=== PATIENT | female | born 1950 | race African-American/Black ===

== ENCOUNTER 2017-10-16 10:48 | Outpatient (CLI) | payer OTHER | END 2017-10-16 10:49 | disposition home or self-care (01) | LOC: DTY/OP 10:48 | PROVIDERS: ATTEND Surgery | DX: E11.9 Type 2 diabetes mellitus without complications (principal); I10 Essential (primary) hypertension | CPT/HCPCS: 97802 ==

== ENCOUNTER 2017-11-22 13:19 | Outpatient (CLI) | payer MEDICARE | END 2017-11-22 13:20 | disposition home or self-care (01) | LOC: BICMAMMO 13:19 | PROVIDERS: ATTEND Family Medicine | DX: Z12.31 Encounter for screening mammogram for malignant neoplasm of breast (principal); Z80.3 Family history of malignant neoplasm of breast | CPT/HCPCS: 77063; 77067 ==

== ENCOUNTER 2018-03-03 16:00 | Inpatient (IN) | payer MEDICARE ==
[2018-03-06] MEDS ORDERED: CEFAZOLIN 2 GM/50 ML BAG ONE (06:29)
[2018-03-06] MEDS ORDERED: Heparin 5,000 UNITS/ML VIAL ONE (06:29)
[2018-03-06] MEDS ORDERED: Bupivacaine/Epinephrine 0.25% 30 ML VIAL ONE (06:35)
[2018-03-06] MEDS ORDERED: Levofloxacin 500 mg/D5W 100 ml Premix Bag ONE (07:15)
[2018-03-06] MEDS ORDERED: Fentanyl 100 MCG/2 ML VIAL ONE ×2 (07:24→09:42)
[2018-03-06] MEDS ORDERED: Phenylephrine HCL 10 MG/ML VIAL ONE (08:16)
[2018-03-06] MEDS ORDERED: Zolpidem Tartrate 5 MG TAB PO PRN (09:05)
[2018-03-06] MEDS ORDERED: diphenhydrAMINE 50 MG/ML VIAL IM PRN (09:05)
[2018-03-06] MEDS ORDERED: diphenhydrAMINE 25 MG CAP PO PRN (09:05)
[2018-03-06] MEDS ORDERED: Promethazine HCl 25 MG/ML VIAL IM PRN ×2 (09:05→12:40)
[2018-03-06] MEDS ORDERED: diphenhydrAMINE 50 MG/ML VIAL IVP PRN ×2 (09:05→12:40)
[2018-03-06] MEDS ORDERED: Ondansetron PF 4 MG/2 ML Vial IVP PRN ×2 (09:05→12:40)
[2018-03-06] MEDS ORDERED: fentaNYL Citrate/PF 2,000 MCG in Sodium Chloride 0.9% 60 ML IV PRN (09:05)
[2018-03-06] MEDS ORDERED: Naloxone HCl 0.4 mg/ml Vial IV PRN (09:05)
[2018-03-06] MEDS ORDERED: Communication Order-Pharmacy FS SCH (09:15)
[2018-03-06] MEDS ORDERED: Promethazine HCl 25 MG/ML VIAL ONE (09:56)
[2018-03-06] MEDS ORDERED: PROPOFOL 200 MG/20 ML VIAL ONE (11:37)
[2018-03-06] MEDS ORDERED: PHENYLEPHRINE-NS 100 MCG/ML 10 ML SYRINGE ONE (11:37)
[2018-03-06] MEDS ORDERED: Ondansetron PF 4 MG/2 ML Vial ONE (11:37)
[2018-03-06] MEDS ORDERED: Dexamethasone 20 MG/5 ML VIAL ONE (11:37)
[2018-03-06] MEDS ORDERED: ePHEDrine/0.9% NaCl/PF SYRINGE 50 mg/10 ml ONE (11:37)
[2018-03-06] MEDS ORDERED: Glycopyrrolate 0.2 MG/ML 5 ML SYRINGE ONE (11:37)
[2018-03-06] MEDS ORDERED: Ketorolac Tromethamine 30 MG/ML VIAL ONE (11:37)
[2018-03-06] MEDS ORDERED: Lidocaine 1% PF 5 ML VIAL ONE (11:37)
[2018-03-06] MEDS ORDERED: Hydrocodone-Acetamin 15 ML UDCUP PO PRN (12:40)
[2018-03-06] MEDS ORDERED: hydrALAZINE 20 MG/ML VIAL SLOW IVP PRN (12:40)
[2018-03-06] MEDS ORDERED: HumaLOG 300 UNITS/3 ML VIAL SC PRN (12:40)
[2018-03-06] MEDS ORDERED: Dextrose 50% Abboject 50 ML SYRINGE SLOW IVP PRN (12:40)
[2018-03-06] MEDS ORDERED: Dextrose 5% in Water 1,000 ML IV PRN (12:40)
[2018-03-06] MEDS ORDERED: Carvedilol 25 MG TAB PO SCH (12:45)
[2018-03-06 12:46] VITALS: BMI 39.4
[2018-03-06] MEDS: Acetaminophen 1,000 MG in Premix Bag 1 BAG IVPB SCH ×2 (13:43→18:22)
[2018-03-06] MEDS: Sodium Chloride 0.9% 1,000 ML IV SCH (13:44)
--- NOTE | 2018-03-06 13:56 | OP ---
DATE OF PROCEDURE: 03/06/2018 PREOPERATIVE DIAGNOSES: 1. Morbid obesity with a body mass index of 40. 2. Type 2 diabetes. POSTOPERATIVE DIAGNOSES: 1. Morbid obesity with a body mass index of 40. 2. Type 2 diabetes. PROCEDURE PERFORMED: 1. Laparoscopic sleeve gastrectomy with [place] staple-line reinforcement and 38-[place] bougie. 2. Esophagogastroduodenoscopy. ANESTHESIA: General. BLOOD LOSS: Minimal. COMPLICATION: None. SPECIMENS: Stomach. DESCRIPTION OF PROCEDURE: The patient was taken to the operating room, laid in supine position. After general anesthetic was obtained, the arms and legs were double strapped to the bariatric table. OG tube was used to decompress the stomach. The abdomen was prepped and draped in sterile fashion. Left subcostal 5 mm Optiview trocar was placed in the usual fashion and high-flow pneumoperitoneum was obtained. Left and right abdominal 12 mm ports as well as a right subcostal 5 mm port were placed under direct visualization. A 5 mm incision was made to the xiphoid. Davonte retractors were used to raise the liver off the GE junction. Short gastrics were taken down, mid body of the stomach to left janiya of the diaphragm. Left janiya, posterior fundus, angle of His were completely dissected. There was no hiatal hernia. Short gastrics were taken down to a distance of 5 cm proximal to the pylorus. OG tube was removed and the 38 bougie was brought in with its tip in the antrum of the stomach. Multiple loads from [place] stapling device with [place] staple line reinforcements were used to perform the sleeve. At first, it was fired at about a distance 6 cm proximal to the pylorus, angled up towards the incisura. Multiple loads were fired up along the bougie and the stomach was completely transected at the angle of His. The stomach was removed from the left abdominal incision and the fascial defect was closed using GraNee needle and 0 Vicryl tie. No bleeding on the staple line. No injury to any intra-abdominal structures. The Bougie was removed and the EGD scope was passed into esophagus, stomach, to the level of duodenum without obstruction. There was no stricture at the incisura. No air leakage or bleeding. EGD scope was used to decompress the stomach, it was pulled and removed. All ports were removed under direct visualization without bleeding. Pneumoperitoneum was let down. Vicryl was used to close the fascial defect from the left abdominal incision. All other incisions were closed using 4-0 Monocryl and Dermabond after being irrigated. The patient was transferred to Recovery in stable condition. All instrument counts, needle counts, and lap counts were correct. Job ID: [id number]
[2018-03-06] MEDS: Gabapentin 300 MG CAP PO SCH ×2 (15:35→20:57)
[2018-03-06] MEDS: Carvedilol 25 MG TAB PO SCH (20:57)
[2018-03-06] MEDS ORDERED: Enoxaparin Sodium 40 MG/0.4 ML SYRINGE SC SCH (21:00)
[2018-03-07] MEDS: Acetaminophen 1,000 MG in Premix Bag 1 BAG IVPB SCH ×2 (00:08→05:49)
[2018-03-07] MEDS: Sodium Chloride 0.9% 1,000 ML IV SCH (00:09)
[2018-03-07 06:18] LABS: Anion Gap 13 mmol/L (10-20); BUN (Urea Nitrogen) 15 mg/dL (9.8-20.1); Calc. Creatinine Clearance 119 mL/min (70-130); Calcium 9.2 mg/dL (7.8-10.44); Carbon Dioxide 22 mmol/L (23-31); Chloride 106 mmol/L (98-107); Estimated GFR-MDRD Greater than 90; Glucose 94 mg/dL (80-115); Sodium 137 mmol/L (136-145)
[2018-03-07 06:40] LABS: #Lymphocytes 1.9 thou/uL (1.20-3.40); #Monocytes 0.4 thou/uL (0.11-0.59); #Neutrophils 4.7 thou/uL (1.40-6.50); %Basophils 0.4 % (0.0-1.0); %Eosinophils 0.2 % (0.0-10.0); %Lymphocytes 26.6 % (21.0-51.0); %Monocytes 6.2 % (0.0-10.0); %Neutrophils 66.7 % (42.0-75.0); Mean Corpuscular HGB CONC 34.3 g/dL (32.0-36.0); Mean Corpuscular Hemoglobin 30.4 pg (27.0-31.0); Mean Corpuscular Volume 88.5 fL (78.0-98.0); Mean Platelet Volume 8.4 fL (7.4-10.4); Platelet Count 206 thou/uL (130-400); RBC Distribution Width 12.6 % (11.5-14.5); Red Blood Cell (RBC) Count 3.61 mill/uL (4.20-5.40)
[2018-03-07] MEDS ORDERED: Pantoprazole 40 MG VIAL IVP SCH (09:00)
[2018-03-07] MEDS: Carvedilol 25 MG TAB PO SCH (09:49)
[2018-03-07] MEDS: Gabapentin 300 MG CAP PO SCH (09:49)
[2018-03-07 11:54] VITALS: BP 104/63; TEMP 98.4
[2018-03-07] MEDS ORDERED: Losartan 25 MG TAB PO SCH (21:00)
== END 2018-03-07 14:15 | disposition home or self-care (01) | DRG 621 ==
LOC: SURG A 03-06 05:54
PROVIDERS: ADMIT Surgery; ATTEND Surgery
PROC: 0DB64Z3 Excision of Stomach, Percutaneous Endoscopic Approach, Vertical (ICD-10-PCS; principal; 2018-03-06)
PROC: 0DJ08ZZ Inspection of Upper Intestinal Tract, Via Natural or Artificial Opening Endoscopic (ICD-10-PCS; 2018-03-06)
DX: E66.01 Morbid (severe) obesity due to excess calories (principal); Z68.39 Body mass index [BMI] 39.0-39.9, adult; E11.9 Type 2 diabetes mellitus without complications
CPT/HCPCS: 36415; 36416; 80048; 85025; 88307; 88312; 94760; C9113; J0131; J1100; J1644; J1650; J1885; J1956; J2001; J2370; J2405; J2550; J2704; J3010; J7050

== ENCOUNTER 2018-03-04 08:33 | Outpatient (CLI) | payer MEDICARE ==
[2018-03-04 09:55] LABS: #Basophils 0.1 thou/uL (0.0-0.2); #Eosinphils 0.1 thou/uL (0.0-0.7); #Lymphocytes 1.8 thou/uL (1.20-3.40); #Monocytes 0.3 thou/uL (0.11-0.59); %Basophils 1.5 % (0.0-1.0); %Eosinophils 2.7 % (0.0-10.0); %Lymphocytes 42.2 % (21.0-51.0); %Monocytes 7.1 % (0.0-10.0); %Neutrophils 46.5 % (42.0-75.0); Hemoglobin 12.5 g/dL (12.0-16.0); Mean Corpuscular Hemoglobin 30.5 pg (27.0-31.0); Mean Corpuscular Volume 87.3 fL (78.0-98.0); Mean Platelet Volume 8.6 fL (7.4-10.4); Platelet Count 248 thou/uL (130-400); RBC Distribution Width 12.6 % (11.5-14.5); Red Blood Cell (RBC) Count 4.08 mill/uL (4.20-5.40); White Blood Cell (WBC) Count 4.2 thou/uL (4.8-10.8)
[2018-03-04 10:07] LABS: ALT (SGPT) 18 U/L (8-55); AST (SGOT) 17 U/L (5-34); Albumin 4.1 g/dL (3.4-4.8); Alkaline Phosphatase 46 U/L (40-150); Anion Gap 13 mmol/L (10-20); BUN (Urea Nitrogen) 20 mg/dL (9.8-20.1); Bilirubin, Direct 0.2 mg/dL (0.1-0.3); Bilirubin, Total 0.5 mg/dL (0.2-1.2); Calc. Creatinine Clearance 0 mL/min (70-130); Carbon Dioxide 26 mmol/L (23-31); Chloride 104 mmol/L (98-107); Estimated GFR-MDRD Greater than 90; Globulin 3.1 g/dL (2.4-3.5); Glucose 123 mg/dL (80-115); Protein, Total 7.2 g/dL (6.0-8.3); Sodium 139 mmol/L (136-145)
[2018-03-04 10:08] LABS: Hemoglobin A1c 6.5 % (4.0-6.0)
--- NOTE | 2018-03-04 13:09 | RAD ---
CHEST TWO VIEWS: INDICATIONS: Preoperative evaluation. COMPARISON: 12/24/2006 FINDINGS: No lobar consolidation, effusion, or pneumothorax. The cardiac silhouette is stable. There are meta llic clips overlying the upper abdomen. IMPRESSION: No focal consolidation. POS: TERESE
--- NOTE | 2018-03-04 13:16 | EKG ---
Test Reason : Blood Pressure : / mmHG Vent. Rate : 065 BPM Atrial Rate : 065 BPM P-R Int : 136 ms QRS Dur : 084 ms QT Int : 382 ms P-R-T Axes : 042 035 029 degrees QTc Int : 397 ms Normal sinus rhythm Normal ECG When compared with ECG of 29-JUL-2007 10:28, No significant change was found Confirmed by RONALDO RICHTER, DR. Steve ([id number]) on 03/04/2018 1:16:01 PM Referred By: SHANNON Confirmed By:DR. Evi HIGGINS MD
== END 2018-03-04 08:34 | disposition home or self-care (01) ==
LOC: LABBT 08:33
PROVIDERS: ATTEND Surgery
DX: Z01.818 Encounter for other preprocedural examination (principal); E66.01 Morbid (severe) obesity due to excess calories
CPT/HCPCS: 71046; 80053; 80076; 83036; 85025; 93005; 93010

== ENCOUNTER 2018-12-24 15:29 | Outpatient (CLI) | payer MEDICARE ==
--- NOTE | 2018-12-24 16:44 | MMO ---
Bilateral MAMMO Bilat Screen [facility]. CLINICAL HISTORY: Patient is 68 years old and is seen for screening. The patient has the following family history of breast cancer: sister. The patient has no personal history of cancer. VIEWS: The views performed were: bilateral craniocaudal with tomosynthesis and bilateral mediolateral oblique with tomosynthesis. FILMS COMPARED: The present examination has been compared to prior imaging studies performed at [facility] on 11/15/2014, 11/17/2015, 11/19/2016 and 11/22/2017. This study has been interpreted with the assistance of computer-aided detection. MAMMOGRAM FINDINGS: There are scattered fibroglandular densities. Benign calcifications are noted bilaterally. Nodularity is stable. There are no suspicious masses, suspicious calcifications, or new areas of architectural distortion. IMPRESSION: THERE IS NO MAMMOGRAPHIC EVIDENCE OF MALIGNANCY. A ROUTINE FOLLOW-UP MAMMOGRAM IN 1 YEAR IS RECOMMENDED. THE RESULTS OF THIS EXAM WERE SENT TO THE PATIENT. ACR BI-RADS Category 2 - Benign finding MAMMOGRAPHY NOTE: 1. A negative mammogram report should not delay a biopsy if a dominant of clinically suspicious mass is present. 2. Approximately 10% to 15% of breast cancers are not detected by mammography. 3. Adenosis and dense breasts may obscure an underlying neoplasm. Reported by: KELLI MANN MD Electonically Signed: [id number]
== END 2018-12-24 15:30 | disposition home or self-care (01) ==
LOC: BICMAMMO 15:29
PROVIDERS: ATTEND Family Medicine
DX: Z12.31 Encounter for screening mammogram for malignant neoplasm of breast (principal); Z80.3 Family history of malignant neoplasm of breast
CPT/HCPCS: 77063; 77067

== ENCOUNTER 2020-01-07 08:38 | Outpatient (CLI) | payer MEDICARE ==
--- NOTE | 2020-01-07 09:05 | MMO ---
Bilateral MAMMO Bilat Screen [facility]. CLINICAL HISTORY: Patient is 69 years old and is seen for screening. The patient has the following family history of breast cancer: sister. The patient has no personal history of cancer. VIEWS: The views performed were: bilateral craniocaudal with tomosynthesis; bilateral mediolateral oblique with tomosynthesis; and right mediolateral oblique. FILMS COMPARED: The present examination has been compared to prior imaging studies performed at [facility] on 11/17/2015, 11/19/2016, 11/22/2017 and 12/24/2018. This study has been interpreted with the assistance of computer-aided detection. MAMMOGRAM FINDINGS: There are scattered fibroglandular densities. There are stable benign appearing calcifications seen in both breasts. There are also vascular calcifications. There are no suspicious masses, suspicious calcifications, or new areas of architectural distortion. IMPRESSION: THERE IS NO MAMMOGRAPHIC EVIDENCE OF MALIGNANCY. A ROUTINE FOLLOW-UP MAMMOGRAM IN 1 YEAR IS RECOMMENDED. THE RESULTS OF THIS EXAM WERE SENT TO THE PATIENT. ACR BI-RADS Category 2 - Benign finding MAMMOGRAPHY NOTE: 1. A negative mammogram report should not delay a biopsy if a dominant of clinically suspicious mass is present. 2. Approximately 10% to 15% of breast cancers are not detected by mammography. 3. Adenosis and dense breasts may obscure an underlying neoplasm. Reported by: DEREK JUSTICE MD Electonically Signed: [id number]
== END 2020-01-07 08:39 | disposition home or self-care (01) ==
LOC: BICMAMMO 08:38
PROVIDERS: ATTEND Family Medicine
DX: Z12.31 Encounter for screening mammogram for malignant neoplasm of breast (principal); Z80.3 Family history of malignant neoplasm of breast
CPT/HCPCS: 77063; 77067

== ENCOUNTER 2020-01-21 08:34 | Outpatient (CLI) | payer MEDICARE ==
--- NOTE | 2020-01-21 09:13 | RAD ---
Radiograph right great toe 3 views: HISTORY: 69-year-old female with diabetic foot pain involving first toe FINDINGS: Mild DJD first MTP without hallux valgus. Bony hypertrophy at medial edge of first IP. First IP joint space maintained. No erosions. No soft ti ssue calcifications. No destructive osseous lesion or fracture. 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
== END 2020-01-21 08:35 | disposition home or self-care (01) ==
LOC: BICRAD 08:34
PROVIDERS: ATTEND Podiatrist
DX: M79.674 Pain in right toe(s) (principal); M19.071 Primary osteoarthritis, right ankle and foot

== ENCOUNTER 2020-02-25 06:53 | Outpatient (CLI) | payer MEDICARE ==
[2020-02-26 04:01] LABS: SARS-CoV-2 MS2 Positive; SARS-CoV-2 N Gene Negative; SARS-CoV-2 S Gene Negative; SARS-CoV-2 by NAA Not Detected (NotDetected); SARS-CoV-2 orf1ab Negative
== END 2020-02-25 06:54 | disposition home or self-care (01) ==
LOC: LABBT 06:53
PROVIDERS: ATTEND Internal Medicine Gastroenterology
DX: Z20.828 Contact with and (suspected) exposure to other viral communicable diseases (principal)
CPT/HCPCS: 87635; U0003

== ENCOUNTER 2020-03-01 09:37 | Day surgery (SDC) | payer MEDICARE ==
[2020-02-29 13:29] VITALS: BMI 34.9
[~2020-03-01 09:37] MED LIST: PROPOFOL 200 MG/20 ML VIAL ONE
--- NOTE | 2020-03-01 12:31 | OP ---
DATE OF PROCEDURE: 03/01/2020 PROCEDURE PERFORMED: Colonoscopy. PREMEDICATION: Given by Anesthesiology Department. PREPROCEDURE DIAGNOSIS: History of colon polyps, adenomatous, last exam 2013. POSTPROCEDURE DIAGNOSES: 1. Sigmoid diverticulosis coli. 2. Otherwise, normal colon exam. DESCRIPTION OF PROCEDURE: Written consents were obtained prior to procedure. After adequate sedation, the rectal exam performed was normal. The endoscope was advanced to the cecum. The quality of the bowel prep was good. The cecum, ascending colon, hepatic flexure, transverse colon, splenic flexure, and descending colon appeared normal. Scattered diverticula were noted throughout the sigmoid colon. Retroflexion in the rectal vault was normal. The patient tolerated the procedure well. ASSESSMENT: 1. Sigmoid diverticulosis coli. 2. Otherwise, normal colon exam. RECOMMENDATION: Repeat colon surveillance colonoscopy in 5 years. Job ID: [id number]
== END 2020-03-01 12:58 | disposition home or self-care (01) ==
LOC: SDC 09:37
PROVIDERS: ATTEND Internal Medicine Gastroenterology
PROC: 0DJD8ZZ Inspection of Lower Intestinal Tract, Via Natural or Artificial Opening Endoscopic (ICD-10-PCS; principal; 2020-03-01)
DX: Z12.11 Encounter for screening for malignant neoplasm of colon (principal); K57.30 Diverticulosis of large intestine without perforation or abscess without bleeding; E11.9 Type 2 diabetes mellitus without complications; I10 Essential (primary) hypertension; Z86.010 Personal history of colon polyps; Z79.82 Long term (current) use of aspirin; Z79.84 Long term (current) use of oral hypoglycemic drugs; Z79.899 Other long term (current) drug therapy; Z88.0 Allergy status to penicillin; Z88.1 Allergy status to other antibiotic agents; Z88.5 Allergy status to narcotic agent; Z88.8 Allergy status to other drugs, medicaments and biological substances; Z91.040 Latex allergy status
CPT/HCPCS: J2704

== ENCOUNTER 2020-03-23 07:32 | Outpatient (CLI) | payer MEDICARE ==
[2020-03-23 08:01] LABS: Estimated GFR-MDRD - POC Greater than 90
--- NOTE | 2020-03-23 09:08 | CT ---
CT ABDOMEN AND PELVIS WITH IV CONTRAST 03/23/2020 CLINICAL INFORMATION: Right-sided lower abdominal pain for 6 weeks. Changes in stool. Constipation. History of diverticulit is. COMPARISON: None. Technique: Multiple contiguous axial CT images are obtained through the abdomen and pelvis with IV contrast. Cor onal reformatted images are provided. FINDINGS: Lower Chest: Lung bases are clear. Vessels: Scattered vascular calcifications are present. Abdomen: Portal vein:Patent Gallbladder: Surgically absent. Liver: within normal limits. Spleen: Within normal limits. Pancreas: within normal limits. Adrenals: within normal limits. Kidneys: A subcentimeter too small to characterize hypodense lesion is seen in each kidney. No enhanc ing renal lesion or hydronephrosis is present. Bowel: Small hiatal hernia is present. Loops of small bowel are normal in caliber. Colonic diverticulosis is present. Small amount retained fecal material is seen throughout the colon. No colonic wall thickening is seen. Appendix: Not visualized. Patient has reported history of prior appendectomy. Peritoneum: No ascites or free air; no fluid collection. Mesentery and Retroperitoneum: No enlarged mesenteric or retroperitoneal lymph nodes. Abdominal Wall: within normal limits. Pelvis: Reproductive Organs: Evidence of hysterectomy. There are low-density structures seen in the left ante rolateral pelvis as well as in the mid right pelvis likely related to patient's ovaries. Bladder: Incompletely distended. Bones: Degenerative changes are seen in the spine. Prominent Schmorl's node seen in the inferior endp late L4 vertebral body. Vacuum phenomenon is seen in the L4-5 intervertebral disc. Trace grade 1 anterolisthesis of L4 on L5 is present. IMPRESSION: 1. No acute findings are seen in the abdomen or pelvis. 2. Colonic diverticulosis with findings suggesting constipation. 3. Postoperative changes related to cholecystectomy and hysterectomy and likely appendectomy. 4. Small hiatal hernia.
[2020-03-23] MEDS ORDERED: Iopamidol-370 76% 500 ML 1 ML ONE (09:09)
== END 2020-03-23 07:33 | disposition home or self-care (01) ==
LOC: BICCT 07:32
PROVIDERS: ATTEND Surgery
DX: K57.92 Diverticulitis of intestine, part unspecified, without perforation or abscess without bleeding (principal); K57.30 Diverticulosis of large intestine without perforation or abscess without bleeding; K44.9 Diaphragmatic hernia without obstruction or gangrene; Z98.890 Other specified postprocedural states; Z90.49 Acquired absence of other specified parts of digestive tract; Z90.710 Acquired absence of both cervix and uterus
CPT/HCPCS: 74177; 82565; Q9967

== ENCOUNTER 2020-12-13 23:16 | Observation (INO) | payer MEDICARE ==
[2020-12-14 00:35] LABS: #Basophils 0.1 thou/uL (0.0-0.2); #Eosinphils 0.3 thou/uL (0.0-0.7); #Lymphocytes 2.5 thou/uL (1.20-3.40); #Monocytes 0.4 thou/uL (0.11-0.59); #Neutrophils 2.5 thou/uL (1.40-6.50); %Eosinophils 4.6 % (0.0-10.0); %Lymphocytes 43.6 % (21.0-51.0); %Monocytes 7.2 % (0.0-10.0); %Neutrophils 43.6 % (42.0-75.0); Hemoglobin 12.8 g/dL (12.0-16.0); Mean Corpuscular HGB CONC 34.7 g/dL (32.0-36.0); Mean Corpuscular Hemoglobin 32.3 pg (27.0-31.0); Platelet Count 240 thou/uL (130-400); RBC Distribution Width 12.7 % (11.5-14.5); Red Blood Cell (RBC) Count 3.97 mill/uL (4.20-5.40); White Blood Cell (WBC) Count 5.7 thou/uL (4.8-10.8)
[2020-12-14 00:55] LABS: ALT (SGPT) 11 U/L (8-55); AST (SGOT) 16 U/L (5-34); Albumin 4.1 g/dL (3.4-4.8); Alkaline Phosphatase 47 U/L (40-110); Anion Gap 13 mmol/L (10-20); BUN (Urea Nitrogen) 22 mg/dL (9.8-20.1); Bilirubin, Total 0.4 mg/dL (0.2-1.2); Calc. Creatinine Clearance 0 mL/min (70-130); Carbon Dioxide 25 mmol/L (23-31); Chloride 107 mmol/L (98-107); Globulin 3.2 g/dL (2.4-3.5); Glucose 108 mg/dL (83-110); Potassium 3.6 mmol/L (3.5-5.1); Protein, Total 7.3 g/dL (5.8-8.1); Sodium 141 mmol/L (136-145)
[2020-12-14] MEDS ORDERED: Aspirin Chewable 81 MG TAB ONE ×2 (04:41→10:30)
[2020-12-14] MEDS ORDERED: Acetaminophen 325 MG TAB PO PRN (05:11)
[2020-12-14] MEDS ORDERED: Dextrose 5% in Water 1,000 ML IV PRN (05:11)
[2020-12-14] MEDS ORDERED: Dextrose 50% Abboject 50 ML SYRINGE SLOW IVP PRN (05:11)
[2020-12-14] MEDS ORDERED: Ondansetron ODT 4 MG TAB PO PRN (05:11)
[2020-12-14] MEDS ORDERED: HumaLOG 300 UNITS/3 ML VIAL SC PRN ×2 (05:11)
[2020-12-14] MEDS ORDERED: hydrALAZINE 20 MG/ML VIAL SLOW IVP PRN (05:16)
[2020-12-14] MEDS ORDERED: metFORMIN 500 MG TAB PO SCH (08:00)
[2020-12-14 08:42] LABS: SARS-CoV-2 NAA Rapid Test Not Detected (NotDetected)
[2020-12-14 08:44] LABS: Cardiac Risk 2.5 (Less than 4.5)
[2020-12-14] MEDS ORDERED: Amlodipine 5 MG TAB PO SCH (09:00)
[2020-12-14] MEDS ORDERED: Losartan 25 MG TAB PO SCH (09:00)
[2020-12-14] MEDS ORDERED: Aspirin Chewable 81 MG TAB PO SCH (09:00)
[2020-12-14] MEDS ORDERED: Losartan 25 MG TAB ONE (10:30)
[2020-12-14] MEDS ORDERED: Amlodipine 5 MG TAB ONE (10:30)
[2020-12-14 16:03] VITALS: BP 145/79; TEMP 98.2
[2020-12-14] MEDS ORDERED: Simvastatin 10 MG TAB PO SCH (21:00)
== END 2020-12-14 16:12 | disposition home or self-care (01) ==
LOC: ERS 23:16 → ERHOLD 12-14 04:47 → PACU-TCU 12-14 09:11
PROVIDERS: ADMIT Student in an Organized Health Care Education/Training Program; ATTEND Student in an Organized Health Care Education/Training Program
DX: I16.1 Hypertensive emergency (principal); I10 Essential (primary) hypertension; E11.9 Type 2 diabetes mellitus without complications; E78.5 Hyperlipidemia, unspecified; Z79.82 Long term (current) use of aspirin; Z79.84 Long term (current) use of oral hypoglycemic drugs; Z79.899 Other long term (current) drug therapy; Z88.0 Allergy status to penicillin; Z88.1 Allergy status to other antibiotic agents; Z88.5 Allergy status to narcotic agent; Z88.6 Allergy status to analgesic agent; Z88.8 Allergy status to other drugs, medicaments and biological substances; Z91.040 Latex allergy status; Z20.822 Contact with and (suspected) exposure to COVID-19
CPT/HCPCS: 70450; 70551; 71045; 80061; 83036; 84484; 85652; 93005; 97139 ×3; G0378 ×2; U0002; 36415; 80053; 84443; 85025

== ENCOUNTER 2021-01-24 15:24 | Outpatient (CLI) | payer MEDICARE | END 2021-01-24 15:25 | disposition home or self-care (01) | LOC: BICMAMMO 15:24 | PROVIDERS: ATTEND Family Medicine | DX: Z12.31 Encounter for screening mammogram for malignant neoplasm of breast (principal); Z80.3 Family history of malignant neoplasm of breast | CPT/HCPCS: 77063; 77067 ==

== ENCOUNTER 2021-04-12 10:22 | Outpatient (CLI) | payer MEDICARE | END 2021-04-12 10:23 | disposition home or self-care (01) | LOC: BICULT 10:22 | PROVIDERS: ATTEND Otolaryngology Plastic Surgery within the Head & Neck | DX: E04.1 Nontoxic single thyroid nodule (principal) | CPT/HCPCS: 76536 ==

== ENCOUNTER 2021-04-26 10:10 | Day surgery (SDC) | payer MEDICARE ==
[2021-04-25 11:42] VITALS: BMI 36.6
[2021-04-26] MEDS ORDERED: Lidocaine 1% PF 5 ML VIAL ONE (10:44)
[2021-04-26] MEDS ORDERED: Sodium Bicarbonate 2.5 MEQ/5 ML VIAL ONE (10:44)
[2021-04-26] MEDS ORDERED: FLU VACC QS2021-22(65YR UP)/PF 240 MCG/0.7 ML SYRINGE IM ONE (12:15)
[2021-04-26 12:21] VITALS: BP 153/68; TEMP 97.9
== END 2021-04-26 12:01 | disposition home or self-care (01) ==
LOC: ULT 10:10
PROVIDERS: ATTEND Otolaryngology Plastic Surgery within the Head & Neck
PROC: 0G9G3ZX Drainage of Left Thyroid Gland Lobe, Percutaneous Approach, Diagnostic (ICD-10-PCS; principal; 2021-04-26)
DX: E04.1 Nontoxic single thyroid nodule (principal); J32.9 Chronic sinusitis, unspecified; I10 Essential (primary) hypertension; E11.9 Type 2 diabetes mellitus without complications; Z79.82 Long term (current) use of aspirin; Z79.84 Long term (current) use of oral hypoglycemic drugs; Z79.899 Other long term (current) drug therapy; Z88.0 Allergy status to penicillin; Z88.1 Allergy status to other antibiotic agents; Z88.5 Allergy status to narcotic agent; Z88.8 Allergy status to other drugs, medicaments and biological substances; Z91.040 Latex allergy status
CPT/HCPCS: 10005; 88173; 88305

== ENCOUNTER 2021-10-03 12:10 | Outpatient (CLI) | payer MEDICARE | END 2021-10-03 12:11 | disposition home or self-care (01) | LOC: BICRAD 12:10 | PROVIDERS: ATTEND Specialist | DX: M43.16 Spondylolisthesis, lumbar region (principal); M25.551 Pain in right hip; M47.816 Spondylosis without myelopathy or radiculopathy, lumbar region; M16.11 Unilateral primary osteoarthritis, right hip | CPT/HCPCS: 72110 ==

== ENCOUNTER 2022-05-04 12:21 | Outpatient (CLI) | payer MEDICARE | END 2022-05-04 12:22 | disposition home or self-care (01) | LOC: ULT 12:21 | PROVIDERS: ATTEND Otolaryngology Plastic Surgery within the Head & Neck | DX: E04.1 Nontoxic single thyroid nodule (principal) | CPT/HCPCS: 76536 ==

== ENCOUNTER 2023-10-22 13:40 | Outpatient (CLI) | payer MEDICARE | END 2023-10-22 13:41 | disposition home or self-care (01) | LOC: BICMAMMO 13:40 | PROVIDERS: ATTEND Family Medicine | DX: Z13.21 Encounter for screening for nutritional disorder (principal); M81.0 Age-related osteoporosis without current pathological fracture; Z80.3 Family history of malignant neoplasm of breast | CPT/HCPCS: 77063; 77067; 77080 ==

== ENCOUNTER 2024-02-12 11:24 | Day surgery (SDC) | payer MEDICARE ==
[2024-02-12] MEDS ORDERED: PROPOFOL 20 ML ONE ×2 (13:40→13:53)
[2024-02-12] MEDS ORDERED: Midazolam HCl 2 mg/2 ml Vial ONE (13:40)
[2024-02-12] MEDS ORDERED: Lidocaine 1% PF 5 ML VIAL ONE (13:47)
[2024-02-12] MEDS ORDERED: PHENYLEPHRINE-NS 100 MCG/ML 10 ML SYRINGE ONE (13:55)
== END 2024-02-12 14:54 | disposition home or self-care (01) ==
LOC: SDC 11:24
PROVIDERS: ATTEND Internal Medicine Gastroenterology
PROC: 0DJ08ZZ Inspection of Upper Intestinal Tract, Via Natural or Artificial Opening Endoscopic (ICD-10-PCS; principal; 2024-02-12)
PROC: 0D757ZZ Dilation of Esophagus, Via Natural or Artificial Opening (ICD-10-PCS; 2024-02-12)
DX: R13.19 Other dysphagia (principal); K21.9 Gastro-esophageal reflux disease without esophagitis; E11.9 Type 2 diabetes mellitus without complications; I10 Essential (primary) hypertension; E78.00 Pure hypercholesterolemia, unspecified; Z90.49 Acquired absence of other specified parts of digestive tract; Z98.49 Cataract extraction status, unspecified eye; Z90.710 Acquired absence of both cervix and uterus; Z98.890 Other specified postprocedural states; Z88.5 Allergy status to narcotic agent
CPT/HCPCS: 43235; 43450; J2250; J2704